=== PATIENT | male | born 1950 | race Caucasian/White ===

== ENCOUNTER 2016-07-23 22:36 | Emergency (ER) | payer OTHER ==
[2016-07-24] MEDS ORDERED: PHENYLEPHRINE .5% NA SPR 15 ML BTL ONE (00:57)
[2016-07-24] MEDS ORDERED: COCAINE HCL 4% TOPICAL ONE (00:57)
== END 2016-07-24 02:07 | disposition home or self-care (01) ==
LOC: ER 22:36
DX: R04.0 Epistaxis (principal)